=== PATIENT | male | born 1965 | race Caucasian/White ===

== ENCOUNTER → 2016-07-01 | Outpatient (CLI) | payer BC ==
[~2016-07-01] MED LIST: ALLEGRA DPS180 MG PO; ASPIRIN EC81 MG PO; DAILY MULTIPLE1 EAC1 PO; FLEXERIL-DPS10 MG PO; GLUCOPHAGE-DPS500 MG PO; LIPITOR DPS20 MG PO; LISINOPRIL-HCT1 EAC1 PO; MIRALAX PACKET17 GM PO; NORVASC DPS10 MG PO; OXY IR DPS5 MG PO; PRILOSEC DPS20 MG PO; SENOKOT S1 TAB PO; TYLENOL DPS325 MG PO; ULTRAM DPS50 MG PO; XARELTO10 MG PO; [UNRECOGNIZED DRUG - OTHER] OU
== END | disposition home or self-care (01) ==
LOC: PTH.S 11:13
DX: Z01.818 Encounter for other preprocedural examination (principal)

== ENCOUNTER 2016-07-15 12:41 | Inpatient (IN) | payer BC ==
[~2016-07-15] VITALS: Ht 180.3 cm; Wt 138.0 kg
--- NOTE | ~2016-07-15 | HP ---
ADMIT: 07/23/2016 RM/LOC: [facility] MR#: [id number] [address] [address] [place] [place] [address] Pre-OP History and Physical SEX: M AGE: 50 : 1965 DATE OF SERVICE: CHIEF COMPLAINT: Hip pain. HISTORY OF PRESENT ILLNESS: The patient is a 50-year-old male with a longstanding history of right hip pain. Right hip pain limits his activity. He has failed conservative care, now being admitted for right total hip arthroplasty. PAST MEDICAL HISTORY: Past medical problems include asthma, hypertension, and diabetes. MEDICATIONS: Include: 1. Aspirin. 2. Yesenia. 3. Diclofenac. 4. Lisinopril. 5. Hydrochlorothiazide. 6. Metorphan. 7. Lipitor. 8. Norvasc. ALLERGIES: PENICILLIN. SOCIAL HISTORY: Denies any significant tobacco or alcohol use. REVIEW OF SYSTEMS: Negative. PHYSICAL EXAMINATION: Fairly large male, walks with antalgic gait on the right lower extremity. Pain with any motion of the right hip. We can only internally rotate to 10 degrees, externally rotate to 30, flex to 100. He has ADMIT: 07/23/2016 RM/LOC: [facility] MR#: [id number] 2620 [facility] [address] [place] [id number] PEARL SQUIRES [address] [place] [address] Pre-OP History and Physical SEX: M AGE: 50 : 1965 a fairly large abdomen, but no overhanging pannus. Leg is neurovascularly intact. DIAGNOSTIC DATA: X-rays AP, lateral, shows advanced right hip arthritis. No joint space remaining. IMPRESSION: Advanced right hip degenerative joint disease. PLAN: We talked about different options. He is aware of the risks, benefits and options and agreed to proceed. Plan on proceeding with right anterior total hip arthroplasty. He has been seen and cleared from a medical standpoint. Curtis Black MD/ quentin JOB #: [id number] CC: Curtis Black, Attending Physician UNKNOWN, Family Physician
[2016-07-25] MEDS ORDERED: ASPIRIN EC81 MG PO (14:06)
[2016-07-25] MEDS ORDERED: NORVASC DPS10 MG PO (14:06)
[2016-07-25] MEDS ORDERED: LIPITOR DPS20 MG PO (14:07)
[2016-07-25] MEDS ORDERED: LISINOPRIL-HCT1 EAC1 PO (14:07)
[2016-07-25] MEDS ORDERED: GLUCOPHAGE-DPS500 MG PO (14:07)
[2016-07-25] MEDS ORDERED: ALLEGRA DPS180 MG PO (14:07)
[2016-07-25] MEDS ORDERED: DAILY MULTIPLE1 EAC1 PO (14:08)
[2016-07-25] MEDS ORDERED: PRILOSEC DPS20 MG PO (14:08)
[2016-07-25] MEDS ORDERED: MIRALAX PACKET17 GM PO (14:09)
[2016-07-25] MEDS ORDERED: XARELTO10 MG PO (14:09)
[2016-07-25] MEDS ORDERED: SENOKOT S1 TAB PO (14:09)
[2016-07-25] MEDS ORDERED: TYLENOL DPS325 MG PO (14:10)
[2016-07-25] MEDS ORDERED: ULTRAM DPS50 MG PO (14:11)
[2016-07-25] MEDS ORDERED: FLEXERIL-DPS10 MG PO (14:12)
[2016-07-25] MEDS ORDERED: OXY IR DPS5 MG PO (14:12)
[2016-07-25] MEDS ORDERED: [UNRECOGNIZED DRUG - OTHER] OU (14:14)
--- NOTE | 2016-08-03 08:30 | OR ---
ADMIT: 07/23/2016 RM/LOC: [facility] MR#: [id number] [address] [address] PEAR[address] SQU[address]ES [address] [place] [address] Operative/Delivery Room Report SEX: M AGE: 50 : 1965 SURGERY DATE: 07/23/2016 SURGEON: Curtis Black MD ASSISTANTS: 1. Jeanmarie Reed PA-C. 2. OPAL Mayer. PREOPERATIVE DIAGNOSIS: Right hip degenerative joint disease. POSTOPERATIVE DIAGNOSIS: Right hip degenerative joint disease. PROCEDURE: Right anterior total hip arthroplasty with Exparel block. ANESTHESIA: Spinal. COMPLICATIONS: None. ESTIMATED BLOOD LOSS: 250 mL. COMPONENTS: 1. A 60 mm Gription cup. 2. Neutral 36 mm AltrX liner. 3. Two acetabular screws. 4. A 12 mm standard offset Corail stem. 5. A +5 x 36 mm ceramic head. DESCRIPTION OF PROCEDURE: The patient was taken to the operating room. The correct hip was identified and marked in the preop holding area. The preoperative leg lengths were documented. The patient received a spinal anesthetic. At that point, the patient had traction boots applied. The patient was placed on the [facility] operative table. A perfect fluoroscopic AP pelvis was obtained along with a perfect AP of the operative hip and printed for preoperative templating purposes. At that point, the right hip was prepped and draped in a standard fashion and an anterior approach was performed. An incision was made lateral and inferior to the anterior superior iliac spine extending distally. Dissection was carried through subcutaneous tissue down to the tensor fascia. The fibers of the tensor fascia were identified in oblique fashion. The tensor fascia was then opened up along its muscle fibers. An Allis clamp was placed on the anterior fascial border. The tensor muscle itself was then swept off with blunt dissection and retracted posteriorly. At that point, the rectus was elevated off the anterior hip capsule. The lateral circumflex vessels were identified and cauterized. A Cobra retractor was placed above the superior femoral neck to retract the tensor posteriorly. The rest of the rectus was elevated off the anterior hip capsule and a second retractor was placed around the medial femoral neck. An L-shaped capsulotomy was performed through the hip capsule down to the intertrochanteric line and extended along the intertrochanteric line to the level of the lesser trochanter. Tag stitches were placed in the medial and lateral border of the ADMIT: 07/23/2016 RM/LOC: [address] [facility] MR#: [id number] [address] [address] PEARL SQUIRES Formerly named [facility] [place] [address] Operative/Delivery Room Report SEX: M AGE: 50 : 1965 hip capsule. We also released the superior hip capsule out of the trochanteric shoulder region. At that point, we placed our Cobra retractors in an intra- articular fashion for improved exposure to complete our capsular releases intra-articularly. A femoral neck cut was then made based on templating using the trochanteric shoulder as a bony landmark. We then externally rotated the hip 20 degrees for improved exposure and removed the femoral head from the acetabulum with no undue difficulty. Once the femoral head was removed, we again completed our capsular release around the inferior femoral neck to the level of lesser trochanter, released the superior capsule off the greater trochanteric shoulder in its entirety. We then placed slight traction on the femur in 20 degrees external rotation and placed a blunt-tip Cobra retractor over the anterior acetabular border. A second blunt Cobra was placed around the posterior acetabular border. All the remaining labrum was excised and an episiotomy performed to the inferior capsule to improve exposure. We cauterized the fovea and removed any remaining tissue in the depth of the acetabulum. We sequentially reamed the acetabulum under direct visualization up to a 59 size reamer. We elected to use a 60 mm size acetabular component. We put the acetabular component on a curved spout liner helper and placed it within the depths of the acetabulum. At that point we removed all retractors; brought in fluoroscopy; and again obtained a perfect AP of the pelvis followed by a perfect AP of the hip. Under fluoroscopic guidance, we impacted the acetabular component in approximately 45 degrees of inclination and 20 degrees of anteversion. Two acetabular screws were now placed with good purchase. Any peripheral osteophytes were circumferentially removed around the acetabular component. A hole eliminator was placed in the acetabular component and a neutral 36-mm AltrX liner was impacted within the acetabular component. A partial intra-articular block with Exparel was performed at this point in time. Once our acetabular preparation was completed, all the acetabular retractors were removed. We then exposed the femur by rotating it into neutral position and taking all traction off the femur. A femoral elevating hook was placed posterior to the trochanteric ridge. The foot was dropped down to 45 degrees and the leg maximally externally rotated no undue tension. We made sure our inferior capsular release was complete and placed a #1 retractor over the tip of the trochanter. Any remaining capsule was released off the tip of the trochanter and the piriformis tendon and a conjoined tendon were also released for exposure. At that point, you could feel the femur give, and we were able to elevate it up and out of the wound. The femur was externally rotated to approximately 120 degrees and the foot dropped to the floor as the leg was adducted. The trochanteric elevating hook was manually pulled in the anterior lateral direction as the elevating bar was raised to support it. At that point, we had excellent femoral exposure. A Lexa retractor was placed over the tip of the trochanter and a femoral neck retractor around the medial calcar region to improve exposure. The proximal femur was opened with a box osteotome and a canal finder was used to identify the femoral canal. The proximal femur was sequentially broached up to a 12 mm Corail broach. We did overream the distal canal to be sure we did not have a distal femoral fit. At that point, we left the broach in the canal and calcar planed the neck. We then reduced the hip with a standard/high off-set femoral neck and a +5 x 36- ADMIT: 07/23/2016 RM/LOC: 526 [facility] MR#: [id number] 2620 [facility] [address] [place], [place] [address] PEARL SQUIRES [address] [place] [address] Operative/Delivery Room Report SEX: M AGE: 50 : 1965 mm head. All the retractors and femoral hook were removed. Using manual traction, we were able to reduce the hip into the acetabulum with no undue difficulty. A perfect fluoroscopic AP of the pelvis followed by a perfect AP of the hip was obtained and appropriate leg length and offset were confirmed. We replaced our femoral elevating hook posterior to the trochanter. A bone hook and manual traction were used to dislocate the hip, again externally rotating the femur in its entirety as the foot was dropped to the floor and leg adducted. We removed the trial components, replaced a Carson retractor, and a femoral neck retractor. The broach was removed and the appropriate real components opened. We then impacted a size 12 mm standard offset Corail stem down the femoral canal with excellent press-fit. We impacted a +5 x 36 mm ceramic head on the trunnion. All retractors were removed, using manual traction the hip was reduced, and again was found to be stable. A final fluoroscopic AP pelvis and AP hip was obtained to confirm appropriate leg length, offset, and component positioning. We then irrigated out the wounds thoroughly and repaired the anterior capsular structures with #5 Ti-Cron. Our intra-articular Exparel block was completed including all soft tissues. The tensor fascia was repaired with a running and interrupted 0 Vicryl suture. We closed subQ with 2-0 Vicryl and ran a subcuticular Monocryl stitch. A Prineo hip wound dressing was applied and sterile dressings applied. The patient was taken off the HANA table, transferred to a standard OR bed, and taken to the recovery room in stable condition with no complications. Curtis Black MD/ quentin JOB #: [id number] CC: Curtis Black, Attending Physician Jonathan Hernandez, Family Physician
--- NOTE | 2016-08-03 08:30 | DS ---
ADMIT: 07/23/2016 RM/LOC: [address] [facility] MR#: [id number] [facility]#: [id number] [id number] [place], [place] [address] PEARL SQUIRES [address] [facility] [place] [address] General Discharge Summary SEX: M AGE: 50 : 1965 ADMISSION DATE: 07/23/2016 DISCHARGE DATE: 07/24/2016 REASON FOR ADMISSION: Elective right total hip arthroplasty after failing conservative treatment. PREOPERATIVE DIAGNOSIS: Right hip degenerative joint disease. POSTOPERATIVE DIAGNOSIS: Right hip degenerative joint disease. PROCEDURE PERFORMED: Right anterior total hip arthroplasty. SURGEON: Curtis Black MD EQUIPMENT INSTALLATION PROFESSIONAL: 1. Jeanmarie Reed PA-C. 2. OPAL Dodson. ANESTHESIA: Spinal. COMPLICATIONS: None. ESTIMATED BLOOD LOSS: 250 mL. ACTIVE MEDICAL PROBLEMS: 1. Diabetes mellitus type 2. 2. Hypertension. 3. Meralgia paresthetica. 4. Hyperlipidemia. 5. Microalbuminuria. 6. Obesity. HOSPITAL COURSE: The patient was admitted on 07/23/2016 for elective right anterior total hip arthroplasty, done successfully without any complications by Dr. Black. The patient tolerated the procedure well. Postoperatively, the patient was evaluated by Dr. Hernandez with the clinical institute for withdrawal assessment scale. He was then treated for alcohol withdrawal with Valium 5 mg p.o. The patient's blood sugar levels were also evaluated and treated throughout his stay. His pain was well controlled with intraoperative analgesics as well as postoperative oral analgesics. He did suffer from some mild acute blood loss anemia. His hemoglobin dropped to 12.0 on 07/24/2016, but he remained hemodynamically stable and did not require blood transfusion. By postoperative day #1, he was safe and participated well with physical therapy. He was stable and ready for discharge home with plans for physical therapy exercises at home. DISCHARGE MEDICATIONS: 1. Amlodipine 10 mg everyday. 2. Aspirin 81 mg everyday. ADMIT: 07/23/2016 RM/LOC: [address] [facility] MR#: [id number] [address] [facility] [address] [place], [place] [address] PEARL SQUIRES [address] [place] [place], [place] [address] General Discharge Summary SEX: M AGE: 50 : 1965 3. Atorvastatin 20 mg everyday. 4. Lisinopril/hydrochlorothiazide 40/25 mg everyday. 5. Metformin 1000 mg twice daily. 6. Fexofenadine 180 mg everyday. 7. Multivitamin everyday. 8. Omeprazole 20 mg everyday. 9. Dry Eye Relief 0.3 to 1% one drop everyday each eye. 10.Xarelto 10 mg one tablet everyday for 28 days. 11.MiraLax 17 g everyday. 12.Senokot one tablet at bedtime. 13.Tylenol 650 mg every 6 hours as needed for pain. 14.Ultram 50 mg two tablets every 6 hours as needed for pain. 15.Oxycodone 5-10 mg every 4 hours as needed for breakthrough pain. 16.Flexeril 10 mg three times daily as needed. DISCHARGE INSTRUCTIONS: The patient was discharged home with plans for at- home physical therapy exercises per anterior total hip arthroplasty protocol. Follow up in the Orthopedic Office in two weeks for wound check and six weeks with x-ray. Follow up with primary care as directed. OPAL Mayer / Curtis Black MD / quentin JOB #: [id number] CC: Curtis Black MD, Attending Physician Jonathan Hernandez MD, Family Physician
--- NOTE | 2016-08-19 08:26 | CO ---
ADMIT: 07/23/2016 RM/LOC: [address] [facility] MR#: [id number] [address] [facility] [address] [place], [place] [address] PEARL SQUIRES [address] [place] [address] Consultation SEX: M AGE: 50 : 1965 DATE OF CONSULTATION: 07/23/2016 ATTENDING PHYSICIAN: Curtis Black CONSULTING PHYSICIAN: Jonathan Hernandez MD REASON FOR CONSULT: Medical comanagement. HISTORY OF PRESENT ILLNESS: Anthony is a very pleasant, 50-year-old, white male, who presented to the [facility] under the care of Dr. Black for an elective right total hip arthroplasty today. He was seen preoperatively for preop clearance on 07/01/2016. Postoperatively, he has done well. His pain is under control. He is actually up, eating dinner at this time. He denies any chest pain or shortness of breath. PAST MEDICAL HISTORY: Remarkable for: 1. Diabetes mellitus type 2. Most recent A1c in October of 2015 was 6.5. 2. History of ventral hernia. 3. Hypertension. 4. History of heavy alcohol use. The patient is very evasive about his alcohol use. 5. Meralgia paresthetica. 6. Hyperlipidemia. 7. Microalbuminuria. 8. Obesity. PAST SURGICAL HISTORY: He is status post right total hip arthroplasty today. Otherwise, no significant past surgeries. MEDICATIONS: His outpatient medications include: 1. Diclofenac 75 mg twice daily. 2. Multivitamin daily. 3. Omeprazole 20 mg daily. 4. Eyedrops one drop daily as needed. 5. Lisinopril and hydrochlorothiazide 20/12.5, two tabs daily. 6. Atorvastatin 20 mg daily. 7. Metformin a 1000 mg twice daily. 8. Aspirin 81 mg daily. 9. Norvasc 10 mg daily. 10.Yesenia 180 mg daily. 11.Motrin 600 mg t.i.d. p.r.n. ALLERGIES: ALLERGIC TO PENICILLIN. SOCIAL HISTORY: He drinks moderately to heavily, though he is very evasive about how much he actually drinks. I suspect it is more than he lets on. Tobacco abuse. The patient does smoke every day. He is , his is with him in the exam room today. He denies any recreational drug use. 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 ADMIT: 07/23/2016 RM/LOC: [address] [facility] MR#: [id number] [address] [facility] [address] [place] [id number] PEARL SQUIRES [address] [place] [address] Consultation SEX: M AGE: 50 : 1965 FAMILY HISTORY: Stroke in a paternal grandmother. Diabetes in his mother. Hypertension in his mother. REVIEW OF SYSTEMS: As per HPI. Others reviewed and negative. PHYSICAL EXAMINATION: VITAL SIGNS: Blood pressure is 151/91, pulse 108, respirations 16, temp 99.3, O2 saturation is 97% on room air. GENERAL: Awake, alert, upright in the bedside chair, eating dinner, in no acute distress. HEENT: Normocephalic and atraumatic. NECK: Supple. No lymphadenopathy. No thyromegaly. HEART: Regular rate and rhythm. No murmurs, gallops, or rubs. LUNGS: Clear to auscultation bilaterally. ABDOMEN: Benign. LAB AND X-RAY DATA: Postoperative hip x-ray shows new hip prosthesis. Otherwise, no other x-rays or lab findings. ASSESSMENT AND PLAN: 1. Status post right total hip arthroplasty. Postop day #0, doing well. Anticipate routine care. He is on Xarelto for DVT prophylaxis. We will continue that for the full 1-month duration postop. 2. Hypertension. We need to get his home medications restarted. 3. Diabetes mellitus type 2. We are doing Accu-Cheks and supplemental scale insulin for that. 4. Again, anticipate relatively uneventful postop course. Jonathan Hernandez MD/ quentin JOB #: [id number] CC: Curtis Black, Attending Physician Jonathan Hernadnez, Family Physician
== END 2016-07-24 15:35 | disposition home or self-care (01) | DRG 470 ==
LOC: WOR 07-23 05:47 → 5MS 07-23 05:47
PROVIDERS: ADMIT Orthopaedic Surgery
PROC: 0SR904A Replacement of Right Hip Joint with Ceramic on Polyethylene Synthetic Substitute, Uncemented, Open Approach (ICD-10-PCS; principal; 2016-07-23)
DX: M16.11 Unilateral primary osteoarthritis, right hip (principal); Z68.41 Body mass index [BMI] 40.0-44.9, adult; I10 Essential (primary) hypertension; E66.9 Obesity, unspecified; E78.5 Hyperlipidemia, unspecified; J45.909 Unspecified asthma, uncomplicated; F17.210 Nicotine dependence, cigarettes, uncomplicated; E11.9 Type 2 diabetes mellitus without complications; Z79.82 Long term (current) use of aspirin; Z79.84 Long term (current) use of oral hypoglycemic drugs